=== PATIENT | female | born 1960 | race Caucasian/White ===

== ENCOUNTER 2018-06-12 10:33 | Emergency (ER) | payer OTHER ==
[~2018-06-12] VITALS: Ht 157.5 cm; Wt 106.6 kg
[2018-06-12 10:45] VITALS: Ht 157.5 cm; Wt 106.6 kg
[2018-06-12 11:35] LABS: PLATELET COUNT 403 x10^3mcL (130-400); RED CELL DISTRIBUTION WIDTH 16.1 % (11.5-14.5)
[2018-06-12 11:50] LABS: CALCIUM 9.5 mg/dL (8.5-10.1); CARBON DIOXIDE 28.5 mmol/L (21-32); CHLORIDE SERUM 97 mmol/L (98-107); CREATININE SERUM 0.8 mg/dL (0.6-1.0); GFR1 > 60 mL/min; GLUCOSE SERUM 131 mg/dL (74-106); POTASSIUM SERUM 3.8 mmol/L (3.5-5.1); SODIUM SERUM 137 mmol/L (136-145)
[2018-06-12 11:54] LABS: ALKALINE PHOSPHATASE 387 U/L (46-116); ALT/SGPT 306 U/L (14-59); AMYLASE 37 U/L (25-115); AST/SGOT 193 U/L (15-37); LIPASE 176 IU/L (73-393); TOTAL PROTEIN, SERUM 7.4 g/dL (6.4-8.2)
[2018-06-12 12:03] LABS: ALBUMIN 2.7 g/dL (3.4-5.0)
[2018-06-12 12:05] LABS: BILIRUBIN TOTAL 16.7 mg/dL (0.20-1.00)
[2018-06-12 12:33] LABS: BAND NEUTROPHIL 6 % (0-10); MONOCYTE 4 % (0-7); SEGMENTED NEUTROPHILS 79 % (37-75)
[2018-06-12 12:34] LABS: PLATELET MORPHOLOGY PLATELETS INCREASED; rbc morphology (normal/abnorm) ABNORMAL (NORMAL)
[2018-06-12] MEDS ORDERED: LISINOPRIL2.5 MG (13:51)
[2018-06-12] MEDS ORDERED: OMEPRAZOLE20 M4 (13:51)
[2018-06-12 14:25] VITALS: BP 135/85
[2018-06-12 14:39] LABS: MAGNESIUM 2.2 mg/dL (1.8-2.4); PHOSPHOROUS 3.3 mg/dL (2.5-4.9)
[2018-06-12 16:02] LABS: CHOLESTEROL/HDL RATIO 22.2
== END 2018-06-12 14:25 | disposition left against medical advice (07) ==
LOC: ED 10:33 → MU 13:47
PROVIDERS: Emergency Medicine; Family Medicine
DX: B17.9 Acute viral hepatitis, unspecified (principal); I10 Essential (primary) hypertension
CPT/HCPCS: 36415; Q0092